=== PATIENT | male | born 1995 | race Caucasian/White ===

== ENCOUNTER 2021-09-29 13:33 | Emergency (ER) | payer MEDICAID ==
[~2021-09-29] VITALS: Ht 172.7 cm; Wt 93.2 kg
[2021-09-29 13:36] VITALS: BP 154/83
== END 2021-09-29 14:34 | disposition home or self-care (01) ==
LOC: EMS 13:40
DX: K40.90 Unilateral inguinal hernia, without obstruction or gangrene, not specified as recurrent (principal); Z87.19 Personal history of other diseases of the digestive system
CPT/HCPCS: 99281; Z7502